=== PATIENT | male | born 1940 | race Caucasian/White ===

== ENCOUNTER 2018-10-21 06:32 | Day surgery (SDC) | payer OTHER, SELFPAY ==
[2018-10-18 14:28] VITALS: BMI 26.9
[2018-10-21] VITALS (12 sets, daily range): BP systolic 87–117; BP diastolic 56–80; PULSE 60–79; RESP 12–20; TEMP 35.7–36.4; O2SAT 88–97; BMI 25.4
--- NOTE | 2018-10-21 | PATH_ITS ---
[facility] Accession Number: [id number] . 01 Material submitted: . GALL BLADDER AND CONTENTS . 02 Diagnosis: Gallbladder, Cholecystectomy: Chronic cholecystitis with cholelithiasis. Negative for dysplasia or malignancy. [facility] . 02 Electronically signed: . Rosi Clark MD, Pathologist NPI- [id number] . 01 Gross description: . Received in formalin, labeled gallbladder + contents, is an opened gallbladder (length-7.3 cm, diameter-2.7 cm) with meredith-novoa smooth and shiny serosa and an obliterated cystic duct. No lymph nodes are identified. The lumen contains brown solid paste-like material and multiple intact and fragmented yellow smooth calculi (5.5 x 3.0 x 1.5 cm in aggregate). The mucosa is meredith-novoa smooth and flat. The wall is up to 0.2 cm thick. No nodules, masses or lesions are identified. Also, submitted are additional intact and fragmented calculi (6.5 x 6.3 x 0.3 cm in aggregate). Section code: (A1) three serial sections from the body; (A2) two longitudinal sections from the fundus. ([id number]) /[facility] . 02 Pathologist provided ICD-10: K80.70 . 02 CPT . 390621 Performed at: 01 [facility] [address] [place] [address], [place], [place] [id number] MD Marck Butcher MD Phone: [phone] Performed at: 02 [facility] [address] [place], [place] [id number] MD Rosi Clark MD Phone: [phone]
[2018-10-21] MEDS: LACTATED RINGERS 1,000 ML 21 ML IV (07:30)
--- NOTE | 2018-10-21 07:48 | PM.PREOP ---
Pre-operative Note Interval Note History & Physical reviewed/Exam performed by Physician: Yes Changes to H&P: No
[2018-10-21] MEDS: CEFAZOLIN 2 GM/100 ML FROZ.PIGGY IV (07:55)
[2018-10-21] MEDS: BUPIVACAINE 0.5% (PF) VIAL 30 ML INJ (08:15)
--- NOTE | 2018-10-21 08:31 | SUR.OPER ---
Supine on padded OR bed, head on pillow, safety belt at thigh, left arm padded and tucked at side. Right arm secured on padded arm oard <90 degrees abduction. Legs uncrossed. Padded footboard in place. Tape over blanket to secure lower legs.
--- NOTE | 2018-10-21 10:26 | PM.OP.1 ---
Operative Date/Time/Diagnoses Date of procedure: 10/21/18 Time of procedure: 10:04 Pre-op diagnosis: Cholelithiasis symptomatic gallbladder disease Post-op diagnosis: same (Cholelithiasis with chronic cholecystitis.) Procedure & Clinicians Procedure: Laparoscopic cholecystectomy Same procedure as scheduled: Yes Indications: Symptomatic patient with right upper quadrant pain and gallstones Surgeon: Zachary Simon Click Yes if Unassisted: Yes Anesthesia Type: General Operative Notes Findings: Thickened gallbladder wall with dense adherence of omentum to the surface of the gallbladder. Closure Type: primary Specimen(s): other (Gallbladder) Implants & Drains: None Estimated Blood Loss (mL): 150 Blood products transfused: none Procedure in detail: The patient is placed supine on the operating table underwent general endotracheal anesthesia. Was prepped draped usual fashion. Local anesthetic was infiltrated beneath the umbilicus. Transverse incision was made in the infraumbilical fold and carried down the level of fascia. The fascia was opened and the peritoneum entered. Stay sutures of 0 Polysorb were placed in the fascia. An Karissa cannula was inserted the abdomen was insufflated. Patient was repositioned 3 additional ports were placed under the right costal margin. The gallbladder was identified as a structure encased in omentum. Using sharp dissection and cautery a dissected omentum off the liver and the gallbladder. The gallbladder was then grasped and elevated. Dissection was begun near its end. The clamp holding the gallbladder unfortunately created a small hole in the gallbladder due to the disease of the gallbladder. Thus there was a small amount of drainage of intra gallbladder contents. I was able however to suction all this material as we went. The cystic duct was identified and from surrounding structures. Three clips were placed across and it was divided leaving 2 in the patient. There was also a small vascular structure identified posteriorly that had 2 clips placed on it . It was divided. There was a small corner of the cystic duct that to the clip did not go all the way across and so an additional 2 clips were added. This appeared to completely control any drainage from the cystic duct. The gallbladder was dissected from its bed in the liver using cautery. Bleeding was controlled as we went. The gallbladder was detached and placed in a bag. It was removed with a great deal of difficulty due to the numerous stones and thickening of the gallbladder. Once removed the ports were reinserted and I identified bleeders in the bed of the liver. These were cauterized. This was a tedious process. Ultimately it appeared that we had brought all bleeding under meticulous control. There was no drainage of any bilious or bloody material at completion. The right upper quadrant was irrigated and suctioned free of fluid. The ports were all removed and the stay sutures at the umbilicus tied. A 2 0 PDS was placed between the 2 stay sutures and tied. The wounds were all irrigated. The subcu was closed in all locations with an interrupted 4 0 Vicryl subcuticular stitch and Steri-Strips. Dressings were applied and the patient was awakened and taken to recovery area in good condition. There were no apparent complications. Complications: none Condition: stable Disposition: PACU
--- NOTE | 2018-10-21 11:13 | SUR.PHASEII ---
PT ARRIVED TO PHASE II VIA STRETCHER. PT SITTING UP AND TALKING TO RN. PT FAMILY BROUGHT TO BEDSIDE. DRSG'S OBSERVED TO BE C/D/I. IV SITE CLEAR. PT DRINKING COFFEE AND DENIES ANY NAUSEA. PT RATING PAIN 2/10 AND STATES PAIN LEVEL IS TOLERABLE AT THIS TIME. PT REQUESTING NO PAIN MEDS AT THIS TIME. BED IN LOWEST POSITION AND CALL LIGHT GIVEN TO PT. PT APPEARS COMFORTABLE AT THIS TIME.
== END 2018-10-21 12:22 | disposition home or self-care (01) ==
LOC: OR 06:36
PROVIDERS: PCP Family Medicine; Visit Provider Specialist
PROC: 0FT44ZZ Resection of Gallbladder, Percutaneous Endoscopic Approach (ICD-10-PCS; CPT 47562; principal; 2018-10-21 07:45)
DX: K80.10 Calculus of gallbladder with chronic cholecystitis without obstruction (principal); F17.210 Nicotine dependence, cigarettes, uncomplicated
CPT/HCPCS: 47562; J0690; J1100; J2405; J2704; J3010

== ENCOUNTER → 2019-02-11 11:20 | Outpatient (CLI) | payer OTHER, SELFPAY ==
--- NOTE | 2019-02-11 | DI.RAD.S_ITS ---
PROCEDURE: XR CHEST 2V INDICATIONS: Lobar pneumonia, unspecified organism TECHNIQUE: 2 views of the chest were acquired. COMPARISON: [facility], CHARLES, CHEST 2 VIEW, 10/03/2014, 10:57. FINDINGS: Surgical changes and devices: None. Lungs and pleura: Lungs are clear. No pleural effusions or pneumothorax. Mediastinum: Mediastinal contours are normal. Heart size is normal. Bones and chest wall: No suspicious bony abnormalities. Soft tissues appear unremarkable. IMPRESSION: No acute consolidation. In particular the right upper lobe appears clear. Chronic scattered scarring/atelectasis. Dictated by: Jose Antonio Bonilla M.D. on 02/11/2019 at 13:37 Approved by: Jose Antonio Bonilla M.D. on 02/11/2019 at 13:40
== END ==
PROVIDERS: PCP Family Medicine; Visit Provider Family Medicine
DX: J18.1 Lobar pneumonia, unspecified organism (principal)
CPT/HCPCS: 71046

== ENCOUNTER → 2021-03-26 09:10 | Outpatient (CLI) | payer MEDICARE, OTHER, SELFPAY ==
[2021-03-26 19:07] LABS: Add Manual Diff / Slide Review NO; Basophils Absolute Auto 100 /uL (0-100); Basophils Percent Auto 0.9 % (0-2); Eosinophils Absolute Auto 300 /uL (0-450); Eosinophils Percent Auto 4.4 % (2-4); Hematocrit 44.8 % (41-53); Hemoglobin 14.7 g/dL (13.5-17.5); Lymphocytes Absolute Auto 1500 /uL (1100-4500); Lymphocytes Percent Auto 25.4 % (25-40); Mean Corpuscular HGB Conc 32.9 % (30-36); Mean Corpuscular Hemoglobin 30.6 PG (26-34); Mean Corpuscular Volume 93.2 fL (80-100); Monocytes Absolute Auto 600 /uL (0-900); Monocytes Percent Auto 10.4 % (3-14); Neutrophils Absolute Auto 3600 /uL (1500-7000); Neutrophils Percent Auto 58.9 % (50-75); Platelet Count 176 X10^3/uL (150-400); Red Blood Cell Count 4.81 X10^6/uL (4.5-5.9); Red Cell Distribution Width 13.3 % (11.6-14.8); White Blood Cell Count 6.1 X10^3/uL (4.5-11.0)
[2021-03-26 19:35] LABS: Alanine Aminotransferase 25 IU/L (<50); Albumin 3.6 g/dL (3.5-5.0); Albumin Globulin Ratio 1.3 (1.0-2.8); Alkaline Phosphatase 65 U/L (38-126); Aspartate Aminotransferase 28 IU/L (17-59); Bilirubin Total 0.7 mg/dL (0.2-1.3); Blood Urea Nitrogen 22 mg/dL (9-20); Calcium 9.2 mg/dL (8.4-10.2); Carbon Dioxide 27 mmol/L (22-32); Chloride 105 mmol/L (98-107); Cholesterol 81 mg/dL (140-199); Globulin 2.8 g/dL (1.7-4.1); Glucose 96 mg/dL (80-110); HDL Cholesterol 42 mg/dL (40-60); HEMOLYSIS < 15 (0-50); LDL Cholesterol Calculated 31 mg/dL (<100); Potassium 4.9 mmol/L (3.4-5.1); Sodium 139 mmol/L (137-145); Total Protein 6.4 g/dL (6.3-8.2); Triglycerides 41 mg/dL (35-150)
== END ==
PROVIDERS: PCP Family Medicine; Visit Provider Family Medicine
DX: R73.03 Prediabetes (principal); I71.4 Abdominal aortic aneurysm, without rupture
CPT/HCPCS: 80053; 80061; 85025

== ENCOUNTER → 2021-10-21 09:38 | Outpatient (CLI) | payer MEDICARE, SELFPAY ==
--- NOTE | 2021-10-21 09:43 | DI.CT.S_ITS ---
PROCEDURE: CT ABDOMEN PELVIS W CON INDICATIONS: monitoring AAA and non calcified lung base nodule TECHNIQUE: After the administration of oral and IV contrast, axial sections were acquired from the lung bases to the pubic symphysis. Coronal and sagittal reformats were performed. For radiation dose reduction, the following was used: automated exposure control, adjustment of mA and/or kV according to patient size. COMPARISON: [facility], CT, CT CHEST WO CON, 10/21/2021, 10:47. Outside Facility, RG, CT ANGIO ABDOMEN / PELVIS W, 01/21/2021, 23:46. (No report available). FINDINGS: Image quality: Excellent. Lung bases: Emphysematous change. Heart: No significant findings. ABDOMEN: Liver: Unremarkable. Gallbladder: Cholecystectomy. Biliary ducts: Unremarkable. Pancreas: Unremarkable. Spleen: Unremarkable. Adrenal Glands: No nodularity of the right adrenal gland. 10 mm nodule in the left adrenal gland, previously demonstrating attenuation values most consistent with an adenoma. Kidneys and Ureters: Symmetric enhancement without evidence of obstructive uropathy. Bilateral cortical hypoattenuating lesions are seen measuring up to 1.7 cm, likely reflecting cysts. Stomach and Bowel: No evidence of intestinal obstruction or inflammatory change. Colonic diverticulosis. Normal appearance of the appendix. Peritoneum: No abnormal intraperitoneal fluid. No free air. Ventral Wall: No hernia. Abdominal Nodes: No retroperitoneal or mesenteric adenopathy by size criteria. Vessels: Redemonstrated aneurysmal dilatation of the distal infrarenal aorta, measuring up to 3.6 cm (5-44) and containing crescentic thrombus. Dilatation of the celiac trunk, measuring up to 1.3 cm, unchanged. PELVIS: Pelvic Organs: Unremarkable. Bladder: Unremarkable. Pelvic Nodes: No enlarged lymph nodes. Miscellaneous: No inguinal hernias are seen. Bones: Multifocal degenerative change, unchanged. IMPRESSION: 1. No significant interval change of the celiac trunk or distal infrarenal aorta. Dictated by: Pancho Crespo M.D. on 10/21/2021 at 11:54 Approved by: Pancho Crespo M.D. on 10/21/2021 at 12:02
--- NOTE | 2021-10-21 09:43 | DI.CT.S_ITS ---
PROCEDURE: CT CHEST WO CON INDICATIONS: follow up 5mm nodule seen at [facility] CT 01/2021 TECHNIQUE: Noncontrast 2.0-2.5 mm thick sections acquired from the pulmonary apices to the posterior costophrenic angles. 7 mm thick axial MIP and 5 mm coronal and sagittal reformats were then acquired. A low radiation dose technique was utilized. COMPARISON: Outside Facility, RG, CT ANGIO ABDOMEN / PELVIS W, 01/21/2021, 23:46. FINDINGS: Image quality: Diagnostic, given the low radiation dose technique. Lungs and pleura: 5 mm solid nodule is again seen in lateral aspect of left lower lobe series 3, image 216 unchanged from previous study. 6-7 mm nodular density is noted adjacent to posterior lateral pleura of right lower lobe series 3, image 235 not definitely seen on previous study. 4 mm nodular density is noted along oblique fissure on the left side series 3, image 140. 6 mm nodular density is also noted adjacent to anterior pleura of right middle lobe series 3, image 199. Subtle 4-5 mm ground-glass density nodule adjacent to anterior pleura of left upper lobe is also seen series 3, image 192. Reticulonodular prominence in periphery of bilateral lung sevilla are seen more prominent in mid to lower lung sevilla concerning for early pulmonary fibrosis. Moderate centrilobular emphysema is seen. No pleural effusion or pneumothorax. Central and peripheral airway is patent. Mediastinum: Heart size is normal. No pericardial effusion. Enlarged precarinal lymph no measures 1.2 cm in short axis diameter is seen series 2, image 30. No hilar lymphadenopathy by size criteria. There is ascending thoracic aortic aneurysm measures up to 4.7 cm in largest AP diameter series 2, image 36. No descending thoracic aortic aneurysm is seen. The central pulmonary arteries are normal in size. [id number] atherosclerotic calcifications are noted in coronary vessels and thoracic aorta Esophagus is normal in caliber. No hiatal hernia. Bones and chest wall: No suspicious bony lesions. No vertebral body compression fractures. No axillary or supraclavicular adenopathy by size criteria. Thyroid gland is within normal limits. Abdomen: Visualized upper abdomen solid organs and bowel loops appear normal in the absence of contrast. Gallbladder is surgically absent. IMPRESSION: 1. Multiple solid and sub solid nodules seen in periphery of bilateral lung sevilla as described in detail above. Patient's known 5 mm solid nodule in left lower lobe seen on previous CT of abdomen and pelvis study is unchanged. Suggest follow-up CT study in 6 months for evaluation of stability. 2. Moderate centrilobular emphysema. Reticular nodular prominence in periphery of bilateral lung sevilla suggestive of developing interstitial pulmonary fibrosis. No pleural effusion or pneumothorax. Airway is patent. 3. Nonspecific prominent mediastinal lymph node as above. Cardiomegaly and uhqj-gz-lzkvrksf atherosclerotic disease. Ascending thoracic aortic aneurysm measures up to 4.7 cm in largest AP diameter. Fleischner Society criteria for SOLID lung nodule followup. Nodule size (mm)Low-risk patientHigh-risk patient<6 (single or multiple)No routine followup.Optional CT at 12 months. 6-8 (single or multiple)CT at 6-12 months, then optional CT at 18-24 mo.CT at 6-12 months, then CT at 18-24 months. >8 (single)CT at 3 months, PET-CT, or biopsy. Same as for low-risk pts. >8 (multiple)CT at 3-6 months, then optional CT at 18-24 mo.CT at 3-6 months, then CT at 18-24 months. Fleischner Society criteria for SUB-SOLID lung nodule followup. Solitary pure ground-glass nodules<6 mm (ground glass or part solid)No followup needed. 6 mm or larger (ground glass)CT at 6-12 months to confirm persistence, then CT every 2 years until 5 years.6 mm or larger (part solid)CT at 3-6 months to confirm persistence, then annual CT until 5 years if unchanged and solid component remains <6 mm. Multiple sub-solid nodules<6 mmCT at 3-6 months, then CT consider at 2 & 4 years for high risk patients. [address] at 3-6 months. Subsequent management based on most suspicious lesions. Recommendations do not apply to lung cancer screening, patients with immunosuppression, or patients with known primary cancer. Dictated by: Kendrick Handley M.D. on 10/21/2021 at 11:48 Approved by: Kendrick Handley M.D. on 10/21/2021 at 11:56
[2021-10-21 10:09] LABS: Blood Urea Nitrogen 21 mg/dL (9-20); Calcium 9.5 mg/dL (8.4-10.2); Carbon Dioxide 29 mmol/L (22-32); Chloride 107 mmol/L (98-107); Estimated Glomerular Filt Rate 52.5 mL/min (>60); Glucose 109 mg/dL (80-110); HEMOLYSIS < 15 (0-50); Potassium 4.4 mmol/L (3.4-5.1); Sodium 138 mmol/L (137-145)
== END ==
PROVIDERS: PCP Physician Assistant; Referring Provider Physician Assistant; Visit Provider Physician Assistant
DX: I71.4 Abdominal aortic aneurysm, without rupture (principal); R91.8 Other nonspecific abnormal finding of lung field; Z01.812 Encounter for preprocedural laboratory examination; J43.2 Centrilobular emphysema; R59.0 Localized enlarged lymph nodes; I51.7 Cardiomegaly
CPT/HCPCS: 36415; 71250; 74177; 80048

== ENCOUNTER → 2022-01-09 10:50 | Outpatient (CLI) | payer MEDICARE, SELFPAY ==
--- NOTE | 2022-01-09 11:04 | DI.CT.S_ITS ---
PROCEDURE: CT CHEST WO CON INDICATIONS: monitoring nodule stability TECHNIQUE: Noncontrast 2.0-2.5 mm thick sections acquired from the pulmonary apices to the posterior costophrenic angles. 7 mm thick axial MIP and 5 mm coronal and sagittal reformats were then acquired. A low radiation dose technique was utilized. COMPARISON: Outside Facility, RG, CT ANGIO ABDOMEN / PELVIS W, 01/21/2021, 23:46. [facility], CT, CT CHEST WO CON, 10/21/2021, 10:47. FINDINGS: Image quality: Diagnostic, given the low radiation dose technique. Lungs and pleura: There is moderate centrilobular emphysema with an apical predominance. Early honeycombing fibrosis is present at the posterior medial lung bases. No pleural effusion or pneumothorax. Pulmonary nodules are as follows: 1. 6 mm Left lower lobe pulmonary nodule, unchanged from January 21, 2021 (series 3/image 206). 2. 6 mm pulmonary nodule at the posterior right lower lobe pleural surface stable from October 21, 2021 (series 3/image 203). 3. 8 mm Right middle lobe pleural based nodule, unchanged from October 21, 2021 (series 3/image 169). Mediastinum: Heart size is normal. No pericardial effusion. No mediastinal adenopathy by size criteria. Thoracic aorta and central pulmonary arteries are normal in size. Scattered atheromatous calcifications are present within the aortic arch. Esophagus is normal in caliber. No hiatal hernia. Bones and chest wall: No suspicious bony lesions. No vertebral body compression fractures. No axillary or supraclavicular adenopathy by size criteria. Thyroid gland is unremarkable . Abdomen: Visualized upper abdomen solid organs and bowel loops appear normal in the absence of contrast. IMPRESSION: 1. Stable subcentimeter pulmonary nodules as above. In a high-risk patient, follow-up in 12-18 months recommended. Fleischner Society criteria for SOLID lung nodule followup. Nodule size (mm)Low-risk patientHigh-risk patient<6 (single or multiple)No routine followup.Optional CT at 12 months. 6-8 (single or multiple)CT at 6-12 months, then optional CT at 18-24 mo.CT at 6-12 months, then CT at 18-24 months. >8 (single)CT at 3 months, PET-CT, or biopsy. Same as for low-risk pts. >8 (multiple)CT at 3-6 months, then optional CT at 18-24 mo.CT at 3-6 months, then CT at 18-24 months. Fleischner Society criteria for SUB-SOLID lung nodule followup. Solitary pure ground-glass nodules<6 mm (ground glass or part solid)No followup needed. 6 mm or larger (ground glass)CT at 6-12 months to confirm persistence, then CT every 2 years until 5 years.6 mm or larger (part solid)CT at 3-6 months to confirm persistence, then annual CT until 5 years if unchanged and solid component remains <6 mm. Multiple sub-solid nodules<6 mmCT at 3-6 months, then CT consider at 2 & 4 years for high risk patients. [address] at 3-6 months. Subsequent management based on most suspicious lesions. Recommendations do not apply to lung cancer screening, patients with immunosuppression, or patients with known primary cancer. Dictated by: Francia Sims M.D. on 01/09/2022 at 16:14 Approved by: Francia Sims M.D. on 01/09/2022 at 16:21
== END ==
PROVIDERS: PCP Physician Assistant; Referring Provider Physician Assistant; Visit Provider Physician Assistant
DX: I71.2 Thoracic aortic aneurysm, without rupture (principal); R91.8 Other nonspecific abnormal finding of lung field; J43.9 Emphysema, unspecified
CPT/HCPCS: 71250

== ENCOUNTER → 2022-02-20 11:00 | Outpatient (CLI) | payer MEDICARE, SELFPAY ==
[2022-02-20 11:59] LABS: COVID19 -Nasal RAPID Negative (Negative)
== END ==
PROVIDERS: PCP Physician Assistant; Referring Provider Internal Medicine; Visit Provider Internal Medicine
DX: Z20.822 Contact with and (suspected) exposure to COVID-19 (principal)
CPT/HCPCS: 87635; C9803

== ENCOUNTER → 2022-02-20 11:02 | Outpatient (CLI) | payer MEDICARE, SELFPAY ==
--- NOTE | 2022-02-28 08:20 | PM.PFT.1 ---
Pulmonary Function Test Referral & Results Date Patient Seen: 02/20/22 Requesting provider: Melquiades Grayson Results: The spirometry demonstrates an FVC of 3.83 L which is 97% of predicted. The FEV1 was measured at 1.76 L which is 63% of predicted. The FEV1/FVC ratio was 46 which is 64% of predicted. The diffusing capacity was measured at 15.05 which is 46% of predicted. No hemoglobin value was provided, so no correction for potential anemia could be made, if appropriate. The maximum voluntary ventilation was reduced Interpretation: This study demonstrates moderate obstructive lung disease based on reduction FEV1 and FEV1/FVC ratio. No bronchodilator was administered for comparison. No lung volumes were performed either There is a moderate to severe reduction in diffusing capacity suggesting significant disease at the capillary alveolar level Clinical correlation suggested
== END ==
PROVIDERS: PCP Physician Assistant; Referring Provider Internal Medicine; Visit Provider Internal Medicine
DX: R06.02 Shortness of breath (principal); Z87.891 Personal history of nicotine dependence; J98.8 Other specified respiratory disorders; Z20.822 Contact with and (suspected) exposure to COVID-19
CPT/HCPCS: 87635; 94010; 94729; C9803

== ENCOUNTER → 2022-04-08 11:26 | Outpatient (CLI) | payer MEDICARE, SELFPAY ==
[2022-04-08 18:23] LABS: Cholesterol 123 mg/dL (140-199); HDL Cholesterol 39 mg/dL (40-60); LDL Cholesterol Calculated 68 mg/dL (<100); Triglycerides 78 mg/dL (35-150)
== END ==
PROVIDERS: PCP Physician Assistant; Visit Provider Internal Medicine Cardiovascular Disease
DX: I71.2 Thoracic aortic aneurysm, without rupture (principal)
CPT/HCPCS: 80061

== ENCOUNTER → 2022-07-12 13:31 | Outpatient (CLI) | payer MEDICARE, SELFPAY ==
--- NOTE | 2022-07-12 13:32 | DI.CT.S_ITS ---
PROCEDURE: CT CHEST WO CON INDICATIONS: surveillance of pulmonary nodule TECHNIQUE: Noncontrast 5 mm thick sections acquired from the pulmonary apices to the posterior costophrenic angles. 1 mm lung window, 5 mm thick coronal and sagittal and 7 mm axial MIP reformats were then acquired. For radiation dose reduction, the following was used: automated exposure control, adjustment of mA and/or kV according to patient size. COMPARISON: [facility], CT, CT CHEST WO CON, 01/09/2022, 11:17. FINDINGS: Image quality: Excellent. Lungs and pleura: Moderate pulmonary emphysema. Basilar fibrotic change noted as well. Small subcentimeter pulmonary nodules in the left lower lobe, right lower lobe and right middle lobe are again noted unchanged in size and configuration. Mediastinum: Heart size is normal. No pericardial effusion. No mediastinal adenopathy by size criteria. Thoracic aorta and central pulmonary arteries are normal in size. Esophagus is normal in caliber. No hiatal hernia. Bones and chest wall: No suspicious bony lesions. No vertebral body compression fractures. No axillary or supraclavicular adenopathy by size criteria. Thyroid gland unremarkable . Abdomen: Visualized upper abdominal solid organs and bowel loops appear normal in the absence of contrast. IMPRESSION: Moderate pulmonary emphysema. Stable bilateral subcentimeter peripheral pulmonary nodules Approved by: Saad Blair M.D. on 07/12/2022 at 14:23
== END ==
PROVIDERS: PCP Physician Assistant; Referring Provider Physician Assistant; Visit Provider Physician Assistant
DX: J43.9 Emphysema, unspecified (principal); R91.8 Other nonspecific abnormal finding of lung field
CPT/HCPCS: 71250

== ENCOUNTER → 2023-01-08 10:52 | Outpatient (CLI) | payer MEDICARE, SELFPAY ==
--- NOTE | 2023-01-08 | DI.CT.S_ITS ---
PROCEDURE: CT CHEST WO CON INDICATIONS: Solitary pulmonary nodule TECHNIQUE: Noncontrast 5 mm thick sections acquired from the pulmonary apices to the posterior costophrenic angles. 1 mm lung window, 5 mm thick coronal and sagittal and 7 mm axial MIP reformats were then acquired. For radiation dose reduction, the following was used: automated exposure control, adjustment of mA and/or kV according to patient size. COMPARISON: [facility], CT, CT CHEST WO CON, 01/09/2022, 11:17. [facility], CT, CT CHEST WO CON, 07/12/2022, 13:45. FINDINGS: Image quality: Excellent. Lungs and pleura: No acute air space opacities. Moderate pulmonary emphysematous change is again noted. Again noted are multiple small pulmonary nodules. Comparisons with the more recent prior study: A subpleural nodule in the left lower lobe on previous image 202/3 and current image 219/3 has increased in size, previously measuring 4.8 mm and currently measuring 6.3 mm. There is a stable 6.3 mm pulmonary nodule abutting the pleura in the right lower lobe. A subpleural pulmonary nodule in the right middle lobe is stable, previously measuring 8 x 8 mm and currently measuring 7 x 7 mm. Reference previous image 170 and current image 196. Reference previous image 215 and current image 220. No pleural effusions or pneumothorax. Central and peripheral airways are patent and normal in caliber. Mediastinum: Heart size is normal. No pericardial effusion. No mediastinal adenopathy by size criteria. Previously not commented on, but stable, is a 4.6 cm ascending aortic aneurysm. Esophagus is normal in caliber. No hiatal hernia. Bones and chest wall: No suspicious bony lesions. No vertebral body compression fractures. No axillary or supraclavicular adenopathy by size criteria. Thyroid gland is unremarkable as visualized . Abdomen: Visualized upper abdominal solid organs and bowel loops appear normal in the absence of contrast. Surgical absence of the gallbladder. IMPRESSION: 1. There is moderate emphysematous change. 2. 3 pulmonary nodules are described. 2 of these nodules are stable. The 3rd nodule has mildly increased in size. It now measures 6.3 mm, in the left lower lobe. 3. Stable ascending aortic aneurysm, measuring 4.6 cm. Comment: Recommend six-month follow-up CT for the increasing pulmonary nodule in the left lower lobe. Recommend 12 month follow-up CT for the 4.6 cm ascending aortic aneurysm. Dictated by: Donnie Sharma M.D. on 01/08/2023 at 14:15 Approved by: Donnie Sharma M.D. on 01/08/2023 at 14:34
== END ==
PROVIDERS: PCP Physician Assistant; Referring Provider Internal Medicine; Visit Provider Internal Medicine
DX: I71.21 Aneurysm of the ascending aorta, without rupture (principal); R91.8 Other nonspecific abnormal finding of lung field
CPT/HCPCS: 71250

== ENCOUNTER → 2023-01-08 11:15 | Outpatient (CLI) | payer MEDICARE, SELFPAY ==
--- NOTE | 2023-01-16 12:13 | PM.PFT.1 ---
Pulmonary Function Test Referral & Results Date Patient Seen: 01/08/23 Results: The spirometry demonstrates an FVC of 3.88 L which is 99% of predicted. The FEV1 was measured at 2.07 L which is 75% of predicted. The FEV1/FVC ratio was 53 which is 75% of predicted. No post bronchodilator numbers were reported Lung volumes show an SVC of 3.66 L which is 83% of predicted. The diffusing capacity was measured at 14.24 which is 44% of predicted. No hemoglobin value was provided, so no correction for potential anemia could be made, if appropriate. Interpretation: This study demonstrates mild obstructive lung disease based on reduction FEV1. There is also a very mild reduction in lung volumes suggesting the presence of restrictive lung disease There is a more significant reduction in diffusing capacity suggesting the presence of significant disease at the capillary alveolar level Clinical correlation suggested
== END ==
PROVIDERS: PCP Physician Assistant; Referring Provider Internal Medicine; Visit Provider Internal Medicine
DX: R06.02 Shortness of breath (principal); I71.21 Aneurysm of the ascending aorta, without rupture; R91.8 Other nonspecific abnormal finding of lung field
CPT/HCPCS: 71250; 94010; 94060; 94726; 94729

== ENCOUNTER → 2023-06-08 13:33 | Outpatient (CLI) | payer MEDICARE, SELFPAY ==
[2023-06-08 19:57] LABS: Hemoglobin A1C% w Est Avg Glu 5.8 % (4.0-6.0)
[2023-06-08 20:03] LABS: Add Manual Diff / Slide Review NO; Basophils Absolute Auto 0 /uL (0-100); Basophils Percent Auto 0.5 % (0-2); Eosinophils Absolute Auto 200 /uL (0-450); Eosinophils Percent Auto 3.9 % (2-4); Hematocrit 43.7 % (41-53); Hemoglobin 14.7 g/dL (13.5-17.5); Lymphocytes Absolute Auto 1600 /uL (1100-4500); Lymphocytes Percent Auto 30.7 % (25-40); Mean Corpuscular HGB Conc 33.7 % (30-36); Mean Corpuscular Hemoglobin 31.2 PG (26-34); Mean Corpuscular Volume 92.7 fL (80-100); Monocytes Absolute Auto 500 /uL (0-900); Neutrophils Absolute Auto 3000 /uL (1500-7000); Neutrophils Percent Auto 55.9 % (50-75); Platelet Count 189 X10^3/uL (150-400); Red Blood Cell Count 4.72 X10^6/uL (4.5-5.9); Red Cell Distribution Width 13.7 % (11.6-14.8); White Blood Cell Count 5.3 X10^3/uL (4.5-11.0)
[2023-06-08 20:30] LABS: Alanine Aminotransferase 19 IU/L (<50); Albumin 3.5 g/dL (3.5-5.0); Albumin Globulin Ratio 1.2 (1.0-2.8); Alkaline Phosphatase 46 U/L (38-126); Aspartate Aminotransferase 23 IU/L (17-59); BUN Creatinine Ratio 18.9 (6-22); Bilirubin Total 0.6 mg/dL (0.2-1.3); Blood Urea Nitrogen 21 mg/dL (9-20); Carbon Dioxide 25 mmol/L (22-32); Chloride 106 mmol/L (98-107); Cholesterol 109 mg/dL (140-199); Estimated Glomerular Filt Rate > 60 mL/min (>60); Globulin 2.9 g/dL (1.7-4.1); Glucose 97 mg/dL (80-110); HDL Cholesterol 34 mg/dL (40-60); HEMOLYSIS < 15 (0-50); LDL Cholesterol Calculated 55 mg/dL (<100); Potassium 4.1 mmol/L (3.4-5.1); Sodium 140 mmol/L (137-145); Total Protein 6.4 g/dL (6.3-8.2); Triglycerides 100 mg/dL (35-150)
== END ==
PROVIDERS: PCP Physician Assistant; Visit Provider Family Medicine
DX: I70.90 Unspecified atherosclerosis (principal); R10.9 Unspecified abdominal pain; I71.40 Abdominal aortic aneurysm, without rupture, unspecified; I71.20 Thoracic aortic aneurysm, without rupture, unspecified
CPT/HCPCS: 80053; 80061; 83036; 85025

== ENCOUNTER → 2023-07-21 12:25 | Outpatient (CLI) | payer MEDICARE, SELFPAY ==
--- NOTE | 2023-07-21 | DI.CT.S_ITS ---
PROCEDURE: CT CHEST WO CON INDICATIONS: PULMONARY NODULES TECHNIQUE: Noncontrast 5 mm thick sections acquired from the pulmonary apices to the posterior costophrenic angles. 1 mm lung window, 5 mm thick coronal and sagittal and 7 mm axial MIP reformats were then acquired. For radiation dose reduction, the following was used: automated exposure control, adjustment of mA and/or kV according to patient size. COMPARISON: [facility], CT, CT CHEST WO CON, 07/12/2022, 13:45. [facility], CT, CT CHEST WO CON, 01/08/2023, 11:07. FINDINGS: Image quality: Excellent. Lungs and pleura: Mild bronchiectasis. Mild scarring in the lung bases. Moderate centrilobular emphysema. Scattered pulmonary nodules. Examples include: -8 x 7 mm triangular shaped, juxtapleural nodule in the right middle lobe has slightly increased in size, measuring 7 x 7 mm on the prior (series 3, image 186). -6 x 7 mm triangular shaped, juxtapleural nodule in the left lower lobe has slightly increased in size, previously measuring 6 x 6 mm (series 3, image 227). Mediastinum: Heart size is mildly enlarged. No pericardial effusion. No mediastinal adenopathy by size criteria. Stable ascending aortic aneurysm measuring 4.4 cm Esophagus is normal in caliber. No hiatal hernia. Bones and chest wall: No suspicious bony lesions. No vertebral body compression fractures. No axillary or supraclavicular adenopathy by size criteria. Thyroid gland contains a 1.4 cm nodule, not large enough to warrant dedicated follow-up . Abdomen: Visualized upper abdominal solid organs and bowel loops appear normal in the absence of contrast. IMPRESSION: The juxtapleural nodules in the right middle lobe and left lower lobe have slightly increased in size. However, given shape and location (juxtapleural position), findings are favored to represent intrapulmonary lymph node over malignancy. Additional three-month follow-up or pulmonology referral should be considered for further management. Dictated by: Dylon Kingston M.D. on 07/21/2023 at 14:56 Approved by: Dylon Kingston M.D. on 07/21/2023 at 15:04
== END ==
PROVIDERS: PCP Physician Assistant; Referring Provider Internal Medicine; Visit Provider Internal Medicine
DX: R91.8 Other nonspecific abnormal finding of lung field (principal)
CPT/HCPCS: 71250

== ENCOUNTER → 2024-01-25 11:04 | Outpatient (CLI) | payer MEDICARE, SELFPAY ==
--- NOTE | 2024-01-25 | DI.CT.S_ITS ---
PROCEDURE: CT CHEST WO CON INDICATIONS: Solitary pulmonary nodule TECHNIQUE: Noncontrast 5 mm thick sections acquired from the pulmonary apices to the posterior costophrenic angles. 1 mm lung window, 5 mm thick coronal and sagittal and 7 mm axial MIP reformats were then acquired. For radiation dose reduction, the following was used: automated exposure control, adjustment of mA and/or kV according to patient size. COMPARISON: [facility], CT, CT CHEST WO CON, 07/12/2022, 13:45. [facility], CT, CT CHEST WO CON, 01/08/2023, 11:07. [facility], CT, CT CHEST WO CON, 07/21/2023, 12:40. FINDINGS: Image quality: Diagnostic. Lower Neck: No enlarged lymph nodes. Thyroid: No thyroid nodules which require sonographic follow up, per consensus guidelines. Axillae: No enlarged lymph nodes. Chest Wall: Unremarkable. Bones: Unremarkable. Lungs and Pleura: No pneumothorax or pleural effusions. Stable pulmonary nodules. A right juxtapleural pulmonary nodule is 7 mm on current image 186/3. The prior measurement appears to be a slight overestimate. A left pulmonary nodule on image 223 is also stable, measuring 6 x 8 mm. It is also subpleural in location. There is also stable subpleural lymph node in the right lower lobe, which on current image 190/3 measures 8 mm. There is moderate centrilobular emphysema and bibasilar pulmonary interstitial fibrosis, right greater than left. Heart: Heart size is normal. No pericardial effusion. Thoracic Vessels: Stable 4.6 cm ascending aortic aneurysm. Pulmonary arteries are normal in caliber. Mediastinum and Jennifer: No enlarged lymph nodes. Esophagus: No wall thickening. No hiatal hernia. Upper Abdomen: Visualized upper abdomen solid organs and bowel loops appear normal. IMPRESSION: 1. 3 pulmonary nodules are stable, and likely benign. 2. Moderate centrilobular emphysema. 3. Bibasilar pulmonary fibrosis, right greater than left. 4. Stable 4.6 cm ascending aortic aneurysm. Comment: Consider yearly screening follow-up lung CT. Dictated by: Donnie Sharma M.D. on 01/25/2024 at 15:36 Approved by: Donnie Sharma M.D. on 01/25/2024 at 15:54
== END ==
LOC: CT 11:05
PROVIDERS: PCP Physician Assistant; Referring Provider Internal Medicine; Visit Provider Internal Medicine
DX: I71.20 Thoracic aortic aneurysm, without rupture, unspecified (principal); R91.8 Other nonspecific abnormal finding of lung field; J84.10 Pulmonary fibrosis, unspecified; I71.40 Abdominal aortic aneurysm, without rupture, unspecified; J43.2 Centrilobular emphysema; I70.90 Unspecified atherosclerosis; R10.9 Unspecified abdominal pain
CPT/HCPCS: 71250

== ENCOUNTER → 2025-01-25 11:35 | Outpatient (CLI) | payer MEDICARE, SELFPAY ==
--- NOTE | 2025-01-25 11:37 | DI.CT.S_ITS ---
PROCEDURE: CT CHEST WO CON INDICATIONS: F/U MULTI PULM NODULES TECHNIQUE: Noncontrast 5 mm thick sections acquired from the pulmonary apices to the posterior costophrenic angles. 1 mm lung window, 5 mm thick coronal and sagittal and 7 mm axial MIP reformats were then acquired. For radiation dose reduction, the following was used: automated exposure control, adjustment of mA and/or kV according to patient size. COMPARISON: [facility], CT, CT CHEST WO CON, 01/25/2024, 11:42. [facility], CT, CT CHEST WO CON, 01/09/2022, 11:17. [facility], CT, CT CHEST WO CON, 07/12/2022, 13:45. [facility], CT, CT CHEST WO CON, 01/08/2023, 11:07. [facility], CT, CT CHEST WO CON, 07/21/2023, 12:40. FINDINGS: Image quality: Diagnostic. Lower Neck: No enlarged lymph nodes. Thyroid: No thyroid nodules which require sonographic follow up, per consensus guidelines. Axillae: No enlarged lymph nodes. Chest Wall: Unremarkable. Bones: Accentuated thoracic kyphosis is seen. Age-appropriate bony degenerative changes are seen. Lungs and Pleura: Pulmonary nodules are again seen: Right lower lobe posteriorly, subpleural, series 3 image 213, 5 mm, slightly smaller than on the prior Right midlung, thickening along the oblique fissure laterally, series 3 image 186, 7 mm, stable Left lower lobe laterally, series 3 image 231, 5 x 7 mm, slightly smaller than on the prior No new pulmonary nodules are detected. Underlying emphysematous changes are seen. Mild areas of subpleural fibrosis can be seen. No pneumothorax or pleural effusions are seen. Heart: Heart size is normal. No pericardial effusion. Mild coronary artery calcification can be seen. Thoracic Vessels: The ascending thoracic aorta is mildly aneurysmal, measuring 4.4 cm transversely on coronal images. The pulmonary arteries demonstrate normal size. Mediastinum and Jennifer: No enlarged lymph nodes. Esophagus: No wall thickening. No hiatal hernia. Upper Abdomen: Visualized upper abdomen solid organs and bowel loops appear normal. IMPRESSION: Bilateral pulmonary nodules are seen, which are primarily subpleural in location and overall decreased in size compared to the prior. Subpleural pulmonary lymph nodes are considered to be most likely, based upon the imaging appearance. Underlying emphysematous changes are seen. Mild subpleural pulmonary fibrosis can again be seen. Mild ascending thoracic aortic aneurysm, 4.4 cm. Additional findings: Mild coronary artery calcification Dictated by: Blake Eastman M.D. on 01/25/2025 at 12:44 Approved by: Blake Eastman M.D. on 01/25/2025 at 12:52
== END ==
LOC: CT 11:35
PROVIDERS: PCP Family Medicine; Referring Provider Internal Medicine; Visit Provider Internal Medicine
DX: I71.21 Aneurysm of the ascending aorta, without rupture (principal); R91.8 Other nonspecific abnormal finding of lung field; J84.10 Pulmonary fibrosis, unspecified; I25.10 Atherosclerotic heart disease of native coronary artery without angina pectoris
CPT/HCPCS: 71250

== ENCOUNTER → 2025-06-28 10:22 | Outpatient (CLI) | payer MEDICARE, SELFPAY ==
[2025-06-28 19:26] LABS: Add Manual Diff / Slide Review NO; Hematocrit 45.5 % (41-53); Hemoglobin 15.4 g/dL (13.5-17.5); Lymphocytes Absolute Auto 1700 /uL (1100-4500); Mean Corpuscular HGB Conc 33.9 % (30-36); Mean Corpuscular Hemoglobin 31.0 PG (26-34); Mean Corpuscular Volume 91.5 fL (80-100); Platelet Count 173 X10^3/uL (150-400)
[2025-06-28 19:34] LABS: Blood Urea Nitrogen 16 mg/dL (9-20); Calcium 9.1 mg/dL (8.4-10.2); Carbon Dioxide 27 mmol/L (22-32); Chloride 106 mmol/L (98-107); Cholesterol 113 mg/dL (140-199); Estimated Glomerular Filt Rate > 60 mL/min (>60); Glucose 101 mg/dL (70-99); HDL Cholesterol 43 mg/dL (40-60); HEMOLYSIS < 15 (0-50); Potassium 4.4 mmol/L (3.4-5.1); Sodium 139 mmol/L (137-145); Triglycerides 68 mg/dL (35-150)
== END ==
PROVIDERS: PCP Family Medicine; Visit Provider Family Medicine
DX: I70.90 Unspecified atherosclerosis (principal); F17.200 Nicotine dependence, unspecified, uncomplicated; I71.21 Aneurysm of the ascending aorta, without rupture
CPT/HCPCS: 80048; 80061; 85025